=== PATIENT | female | born 1955 | race Two or more races ===

== ENCOUNTER 2019-06-21 15:21 | Emergency (ER) | payer OTHER ==
[~2019-06-21] VITALS: Ht 157.5 cm; Wt 59.0 kg
[2019-06-21 15:26] VITALS: BP 122/60
--- NOTE | 2019-06-21 15:26 | NUR ---
[id number], R FOOT PAIN AND SWELLING S/P KICKING A COUNTER AT [place]
[2019-06-21] MEDS ORDERED: IBUPROFEN 600 MG TABLET PO ONE (16:00)
[2019-06-21] MEDS: IBUPROFEN 600 MG TABLET PO ONE (16:01)
--- NOTE | 2019-06-21 16:03 | NUR ---
PT WHEELED TO XRAY
--- NOTE | 2019-06-21 16:13 | NUR ---
Patient is resting comfortably.
--- NOTE | 2019-06-21 17:05 | NUR ---
Patient discharged to home in stable condition. Written and verbal after care instructions given. Patient verbalizes understanding of instruction. PT Ambulated with steady gait.
--- NOTE | 2019-06-21 17:05 | NUR ---
EMT AT BEDSIDE FOR MARTINA WRAP
--- NOTE | 2019-06-21 17:12 | NUR ---
Latrell abreu in ED - 06/21/19 at 1713 by CHELSEA Patient discharged to home in stable condition. Written and verbal after care instructions given. Patient verbalizes understanding of instruction. pt ambulatory with a steady gait.
== END 2019-06-21 17:14 | disposition home or self-care (01) ==
LOC: ER 15:27
DX: S90.31XA Contusion of right foot, initial encounter (principal); M19.071 Primary osteoarthritis, right ankle and foot; E78.00 Pure hypercholesterolemia, unspecified; W22.8XXA Striking against or struck by other objects, initial encounter; Y93.89 Activity, other specified; Y92.512 Supermarket, store or market as the place of occurrence of the external cause; Y99.8 Other external cause status
CPT/HCPCS: 73630-TC

== ENCOUNTER 2021-03-22 18:16 | Emergency (ER) | payer OTHER ==
[~2021-03-22] VITALS: Ht 165.1 cm; Wt 72.6 kg
[2021-03-22] MEDS ORDERED: FAMOTIDINE/PF INJ 20 MG/2 ML VIAL IV ONE ×2 (18:52→19:00)
[2021-03-22] MEDS ORDERED: diphenhydrAMINE HCL 50 MG/ML VIAL ONE (18:52)
[2021-03-22] MEDS ORDERED: DEXAMETHASONE SOD PHOSPHATE 10 MG/ML VIAL ONE (18:52)
[2021-03-22] MEDS ORDERED: diphenhydrAMINE HCL 50 MG CAPSULE ONE (18:54)
[2021-03-22] MEDS ORDERED: DEXAMETHASONE SOD PHOSPHATE 10 MG/ML VIAL IV ONE (19:00)
[2021-03-22] MEDS ORDERED: diphenhydrAMINE HCL 50 MG CAPSULE PO ONE (19:00)
--- NOTE | 2021-03-22 19:03 | NUR ---
Patient came in to the er c/o "I had infusion couple days ago- developed redness/itching/rash was seen and given medicine but now having SOB". Kept comfortable, will continue to monitor accordignly.
[2021-03-22] MEDS ORDERED: ALBUTEROL FS 2.5 MG/3 ML VIAL.NEB NEB ONE (21:30)
[2021-03-22] MEDS ORDERED: ALBUTEROL FS 2.5 MG/3 ML VIAL.NEB ONE (21:41)
[2021-03-22 21:56] LABS: EOSINOPHILS % (AUTO) 0.1 % (0.0-6.0); HEMATOCRIT 37 % (33-45); HEMOGLOBIN 12.4 g/dL (11.5-14.8); LYMPHOCYTES # (AUTO) 0.8 K/uL (0.8-4.8); LYMPHOCYTES % (AUTO) 10.5 % (20.0-44.0); MEAN CORPUSCULAR HGB CONC 34 g/dl (31.0-36.0); MEAN CORPUSCULAR VOLUME 92 fL (82-100); MONOCYTES # (AUTO) 0.2 K/uL (0.1-1.30); MONOCYTES % (AUTO) 3.3 % (2.0-12.0); NEUTROPHILS # (AUTO) 6.6 K/uL (1.8-8.9); NEUTROPHILS % (AUTO) 86.1 % (43.0-81.0); PLATELET COUNT (AUTO) 245 K/uL (150-450); RED BLOOD CELL COUNT(AUTO) 3.99 MIL/uL (4.0-5.2); WHITE BLOOD COUNT (AUTO) 7.6 K/uL (4.3-11.0)
[2021-03-22 22:25] LABS: CALCIUM, SERUM 8.4 mg/dL (8.5-10.1); CARBON DIOXIDE 24 mmol/L (21-32); CHLORIDE 105 mmol/L (98-107); CREATININE 0.9 mg/dL (0.6-1.3); GLUCOSE 160 mg/dL (74-106); POTASSIUM 4.1 mmol/L (3.5-5.1); SODIUM SERUM 139 mmol/L (136-145); UREA NITROGEN, BLOOD 20 mg/dL (7-18)
[2021-03-22] MEDS ORDERED: IV NS 0.9% 250 ML IV ONE (23:30)
[2021-03-22] MEDS ORDERED: CT SWABBABLE VALVE TRANS SET 1 EA INFUS.SET MC ONE (23:30)
[2021-03-22] MEDS ORDERED: IOHEXOL-350 100 ML VIAL IV ONE (23:30)
[2021-03-23 00:39] VITALS: BP 122/78
--- NOTE | 2021-03-23 00:39 | NUR ---
Patient discharged to home in stable condition. Written and verbal after care instructions given. Patient verbalizes understanding of instruction. IV line removed and VSS at time of discharge.
== END 2021-03-23 00:36 | disposition home or self-care (01) ==
LOC: ER 18:23
DX: T78.40XA Allergy, unspecified, initial encounter (principal); L50.9 Urticaria, unspecified; E78.00 Pure hypercholesterolemia, unspecified; M81.0 Age-related osteoporosis without current pathological fracture; E07.9 Disorder of thyroid, unspecified; Z98.890 Other specified postprocedural states; X58.XXXA Exposure to other specified factors, initial encounter
CPT/HCPCS: 36415; 71045; 71275; 80048; 83880; 84484; 85025; 85378; 93005 ×2; 94640; 96374; 96375; 99285; J1100; J3490; J7050; Q0163; Q9967; J1200